=== PATIENT | female | born 1990 | race Caucasian/White ===

== ENCOUNTER 2019-09-15 14:34 | Emergency (ER) | payer OTHER, SELFPAY ==
[~2019-09-15] VITALS: Ht 165.1 cm; Wt 113.4 kg
[2019-09-15 14:38] VITALS: Ht 165.1 cm; Wt 113.4 kg
[2019-09-15 15:21] LABS: BASOPHIL % 0.4 % (0-2); PLATELET COUNT 390 x10^3mcL (130-400); RED CELL DISTRIBUTION WIDTH 12.7 % (11.5-14.5)
[2019-09-15 15:38] LABS: CALCIUM 8.3 mg/dL (8.5-10.1); CARBON DIOXIDE 31.9 mmol/L (21-32); CHLORIDE SERUM 105 mmol/L (98-107); CREATININE SERUM 0.8 mg/dL (0.6-1.0); GFR1 > 60 mL/min; GLUCOSE SERUM 121 mg/dL (74-106); POTASSIUM SERUM 3.6 mmol/L (3.5-5.1); SODIUM SERUM 140 mmol/L (136-145)
[2019-09-15 15:44] LABS: ALBUMIN 3.5 g/dL (3.4-5.0); ALKALINE PHOSPHATASE 64 U/L (46-116); ALT/SGPT 44 U/L (14-59); AST/SGOT 26 U/L (15-37); BILIRUBIN TOTAL 0.2 mg/dL (0.20-1.00); TOTAL PROTEIN, SERUM 7.6 g/dL (6.4-8.2)
[2019-09-15 16:47] VITALS: BP 142/79
== END 2019-09-15 16:47 | disposition home or self-care (01) ==
LOC: ED 14:34
PROVIDERS: Emergency Medicine
DX: R07.89 Other chest pain (principal); R05 Cough; Z20.828 Contact with and (suspected) exposure to other viral communicable diseases
CPT/HCPCS: U0003-CS